=== PATIENT | male | born 1990 | race American Indian/Alaskan Native ===

== ENCOUNTER 2023-08-30 11:55 | Emergency (ER) | payer OTHER ==
[~2023-08-30] VITALS: Ht 180.3 cm; Wt 99.0 kg
[2023-08-30 12:09] VITALS: BP 166/99; PULSE 111; RESP 20; TEMP 98.1; O2SAT 100
== END 2023-08-30 13:00 | disposition left against medical advice (07) ==
LOC: ER 12:02
DX: I10 Essential (primary) hypertension (principal); Z53.21 Procedure and treatment not carried out due to patient leaving prior to being seen by health care provider
CPT/HCPCS: 99281